=== PATIENT | male | born 1985 | race Two or more races ===

== ENCOUNTER 2018-06-14 21:31 | Emergency (ER) | payer MEDICAID ==
[~2018-06-14] VITALS: Ht 167.6 cm; Wt 81.6 kg
--- NOTE | 2018-06-14 21:41 | NUR ---
Pt brought in by [email or web address] with c/o nonradiating chest pain for "few months" now however today the chest pain started again at 1800 rating it 8/10 describing it as sharp. Pt denies shortness of breath, GI/ distress. Respirations even + unlabored. SA02 99% room air. Addendum: 06/14/18 at 2341 by [email or web address] Pt brought in by [email or web address] with c/o nonradiating chest pain for "few months" now however today the chest pain started again at 1800 rating it 8/10 describing it as sharp. Pt denies shortness of breath Pt states he drank alcohol prior to arrival. Pt also c/o abd discomfort. Respirations even + unlabored. SA02 99% room air.
[2018-06-14] MEDS ORDERED: PANTOPRAZOLE SODIUM 40 MG VIAL ONE (22:19)
[2018-06-14] MEDS: IV NORMAL SALINE 1000 ML BAG IV ONE (22:28)
[2018-06-14] MEDS: PANTOPRAZOLE SODIUM 40 MG VIAL IV ONE (22:29)
[2018-06-14 22:38] LABS: BASOPHILS # (AUTO) 0.1 K/uL (0.0-8.0); BASOPHILS % (AUTO) 1.5 % (0.0-2.0); EOSINOPHILS # (AUTO) 0.1 K/uL (0.0-0.7); EOSINOPHILS % (AUTO) 0.9 % (0.0-7.0); HEMATOCRIT 43.5 % (36.7-47.1); HEMOGLOBIN 15.2 g/dL (12.5-16.3); LYMPHOCYTES # (AUTO) 1.6 K/uL (20.0-40.0); MEAN CORPUSCULAR HEMOGLOBIN 30.3 uug (23.8-33.4); MEAN CORPUSCULAR HGB CONC 35 g/dL (32.5-36.3); MEAN CORPUSCULAR VOLUME 86.3 fL (73.0-96.2); MONOCYTES # (AUTO) 0.6 K/uL (2.0-10.0); MONOCYTES % (AUTO) 9.7 % (0.0-11.0); NEUTROPHILS # (AUTO) 3.5 K/uL (1.8-8.9); NEUTROPHILS % (AUTO) 60.9 % (38.5-71.5); PLATELET COUNT (AUTO) 314 K/uL (152-348); RED BLOOD CELL COUNT(AUTO) 5.03 MIL/uL (4.06-5.63); WHITE BLOOD COUNT (AUTO) 5.8 K/uL (3.6-10.2)
[2018-06-14 22:39] LABS: CARBON DIOXIDE 26 mmol/L (21-32); CHLORIDE 102 mmol/L (98-107); CREATININE 0.6 mg/dL (0.6-1.3); GLUCOSE 113 mg/dL (74-106); POTASSIUM 3.8 mmol/L (3.5-5.1); UREA NITROGEN, BLOOD 10 mg/dL (7-18)
[2018-06-14 22:44] LABS: ALANINE AMINOTRANSFERASE 114 U/L (16-63); ALKALINE PHOSPHATASE 52 U/L (50-136); ASPARTATE AMINOTRANSFERASE 85 U/L (15-37); BILIRUBIN,DIRECT 0.1 mg/dL (0.0-0.2); BILIRUBIN,TOTAL 0.2 mg/dL (0.2-1.0); LIPASE 159 U/L (73-393); TOTAL PROTEIN, SERUM 8.6 g/dL (6.4-8.2)
--- NOTE | 2018-06-14 23:26 | NUR ---
Pt states he feels much better. Denies chest pain at this time.
--- NOTE | 2018-06-14 23:40 | NUR ---
IV removed. Catheter intact and site benign. Pressure and 4x4 gauze applied to site. No bleeding noted.
--- NOTE | 2018-06-14 23:40 | NUR ---
Patient discharged to home in stable conditon. Written and verbal after care instructions given. Patient verbalizes understanding of instructions. Pt ambulated out of ER in steady gait with girlfriend who will drive home. Pt states he feels so much better 0/10 pain.
[2018-06-14 23:43] VITALS: BP 147/88
== END 2018-06-14 23:43 | disposition home or self-care (01) ==
LOC: ER 21:32
DX: K29.20 Alcoholic gastritis without bleeding (principal); F10.10 Alcohol abuse, uncomplicated; K70.10 Alcoholic hepatitis without ascites
CPT/HCPCS: 36415; 71045; 80048; 80076; 83690; 84443; 84484; 85025; 85730; 93005; 96374; 99284; C9113; 70030-TC; A4663; J7030